=== PATIENT | female | born 1940 | race Caucasian/White ===

== ENCOUNTER 2022-12-09 09:45 | Outpatient (OUT) | payer MEDICARE, SELFPAY ==
[2022-12-09 10:17] LABS: Basophils Absolute Auto 0.1 10^3/uL (0.0-0.1); Basophils Percent Auto 1.1 % (0.2-2.0); Eosinophils Absolute Auto 0.3 10^3/uL (0.0-0.7); Eosinophils Percent Auto 4.6 % (0.9-7.0); Hematocrit 39.1 % (36.0-48.0); Hemoglobin 13.4 g/dL (12.0-16.0); Immature Granulocytes Abs Auto 0.05 10^3/uL (0.00-0.03); Immature Granulocytes Pct Auto 0.8 % (0.0-0.5); Lymphocytes Absolute Auto 1.6 10^3/uL (1.2-3.8); Lymphocytes Percent Auto 26.9 % (20.5-60.0); Mean Corpuscular HGB Conc 34.3 g/dL (29.9-35.2); Mean Corpuscular Hemoglobin 29.6 pg (26.7-34.0); Mean Corpuscular Volume 86.5 fL (81.0-99.0); Mean Platelet Volume 9.2 fL (9.5-13.5); Monocytes Absolute Auto 0.7 10^3/uL (0.3-0.8); Neutrophils Absolute Auto 3.4 10^3/uL (1.4-6.5); Neutrophils Percent Auto 55.6 % (43.0-75.0); Platelet Count 256 10^3/uL (150-450); Red Blood Count 4.52 10^6/uL (4.20-5.40); Red Cell Distribution Width 14.4 % (11.0-15.0); White Blood Count 6.1 10^3/uL (4.0-11.0)
[2022-12-09 11:38] LABS: Anion Gap 12.8; BUN Creatinine Ratio 21.4; Calcium 9.2 mg/dL (8.5-10.1); Carbon Dioxide 27.9 mmol/L (21.0-32.0); Chloride 104 mmol/L (98-107); Estimated GFR (African America >60 (>=60); Estimated GFR (Non-African Ame >60 (>=60); Glucose 98 mg/dL (74-106); Potassium 3.7 mmol/L (3.5-5.1); Sodium 141 mmol/L (136-145)
== END 2022-12-09 09:46 | disposition home or self-care (01) ==
LOC: LAB 09:54
PROVIDERS: PCP Family Medicine; Visit Provider Nurse Practitioner
DX: I10 Essential (primary) hypertension (principal)
CPT/HCPCS: 36415; 80048; 85025

== ENCOUNTER 2022-12-30 08:25 | Outpatient (OUT) | payer MEDICARE, OTHER, SELFPAY ==
[2022-12-30 09:29] LABS: Chol HDL Ratio 4.2; Cholesterol 171 mg/dL (<=200); HDL Cholesterol 41 mg/dL (40-60); Triglycerides 163 mg/dL (<=150); VLDL CHOLESTEROL 32.6 mg/dL
== END 2022-12-30 08:26 | disposition home or self-care (01) ==
LOC: LAB 08:27
PROVIDERS: PCP Family Medicine; Visit Provider Internal Medicine Cardiovascular Disease
DX: E78.5 Hyperlipidemia, unspecified (principal)
CPT/HCPCS: 36415; 80061

== ENCOUNTER 2023-05-26 09:15 | Outpatient (OUT) | payer MEDICARE, OTHER, SELFPAY ==
[2023-05-26 10:52] LABS: Bilirubin Direct 0.2 mg/dL (0.0-0.2)
== END 2023-05-26 09:16 | disposition home or self-care (01) ==
PROVIDERS: PCP Family Medicine; Visit Provider Nurse Practitioner Acute Care
DX: E78.5 Hyperlipidemia, unspecified (principal)
CPT/HCPCS: 36415; 82248

== ENCOUNTER 2023-05-26 09:20 | Outpatient (OUT) | payer MEDICARE, OTHER, SELFPAY ==
[2023-05-26 09:43] LABS: Basophils Absolute Auto 0.1 10^3/uL (0.0-0.1); Basophils Percent Auto 1.1 % (0.2-2.0); Eosinophils Absolute Auto 0.3 10^3/uL (0.0-0.7); Eosinophils Percent Auto 4.1 % (0.9-7.0); Hematocrit 38.5 % (36.0-48.0); Hemoglobin 12.8 g/dL (12.0-16.0); Immature Granulocytes Abs Auto 0.02 10^3/uL (0.00-0.03); Immature Granulocytes Pct Auto 0.3 % (0.0-0.5); Lymphocytes Absolute Auto 1.7 10^3/uL (1.2-3.8); Lymphocytes Percent Auto 23.6 % (20.5-60.0); Mean Corpuscular HGB Conc 33.2 g/dL (29.9-35.2); Mean Corpuscular Hemoglobin 29.5 pg (26.7-34.0); Mean Corpuscular Volume 88.7 fL (81.0-99.0); Mean Platelet Volume 9.2 fL (9.5-13.5); Monocytes Absolute Auto 0.7 10^3/uL (0.3-0.8); Monocytes Percent Auto 10.6 % (1.7-12.0); Neutrophils Absolute Auto 4.2 10^3/uL (1.4-6.5); Neutrophils Percent Auto 60.3 % (43.0-75.0); Platelet Count 236 10^3/uL (150-450); Red Blood Count 4.34 10^6/uL (4.20-5.40); Red Cell Distribution Width 14.2 % (11.0-15.0)
[2023-05-26 10:49] LABS: Alanine Aminotransferase 23 U/L (14-59); Albumin Globulin Ratio 1.1; Albumin Level 3.4 g/dL (3.4-5.0); Alkaline Phosphatase 66 U/L (46-116); Anion Gap 10.3; Aspartate Amino Transferase 15 U/L (15-37); BUN Creatinine Ratio 19.5; Bilirubin Total 0.7 mg/dL (0.2-1.0); Calcium 8.9 mg/dL (8.5-10.1); Carbon Dioxide 30.1 mmol/L (21.0-32.0); Chloride 105 mmol/L (98-107); Cholesterol 131 mg/dL (<=200); Estimated GFR (African America >60 (>=60); Estimated GFR (Non-African Ame >60 (>=60); Globulin 3.1 g/dL; Glucose 95 mg/dL (74-106); HDL Cholesterol 44 mg/dL (40-60); LDL Cholesterol Calculated 64.2 mg/dL; Potassium 3.4 mmol/L (3.5-5.1); Sodium 142 mmol/L (136-145); Total Protein 6.5 g/dL (6.4-8.2); Triglycerides 114 mg/dL (<=150); VLDL CHOLESTEROL 22.8 mg/dL
== END 2023-05-26 09:21 | disposition home or self-care (01) ==
PROVIDERS: PCP Family Medicine; Visit Provider Family Medicine
DX: E78.5 Hyperlipidemia, unspecified (principal)
CPT/HCPCS: 36415; 80053; 80061; 82248; 85025

== ENCOUNTER 2024-01-26 12:47 | Outpatient (OUT) | payer MEDICARE, OTHER, SELFPAY ==
--- NOTE | 2024-01-26 12:47 | CA_ITS ---
Patient Name: KRYSTEN SUAREZ MR#: [id number] : 1940 Exam Date: 01/26/2024 Ordering Doctor: ALIZA BALDWIN M.D. ECHOCARDIOGRAM REPORT PROCEDURE: CA ECHO DOPPLER COMPLETE INDICATIONS: Edema COMPARISON: None. DESCRIPTION: COMPLETE ECHOCARDIOGRAM Real-time transthoracic echocardiography with 2D, M-mode, spectral and color flow Doppler performed. QUALITY: Technical quality was good. LEFT VENTRICLE: Normal chamber size. Thickened septal wall. Global left ventricular systolic function is normal. LV EF: Estimated left ventricular ejection fraction is 60-65 %. DIASTOLIC: Grade 2 diastolic dysfunction. ATRIAL SEPTUM: LEFT ATRIUM: Moderate dilatation. RIGHT ATRIUM: Mild dilatation. RIGHT VENTRICLE: Normal chamber size. Normal right ventricular systolic function. TRICUSPID VALVE: Normal mobility and thickness. No stenosis with mild regurgitation. Moderate pulmonary hypertension. RVSP 52 mmHg MITRAL VALVE: Normal mobility and thickness. No evidence of mitral valve stenosis. There is no mitral annular calcification. Mild mitral regurgitation. AORTIC VALVE: Normal trileaflet appearance. No visible sclerosis. Normal leaflet mobility. No evidence of aortic valve stenosis. No aortic regurgitation. AORTIC ROOT: Normal diameter and appearance. PULMONIC VALVE: Normal thickness and mobility. No stenosis. Trivial regurgitation. PERICARDIUM: No evidence of pericardial effusion. IVC: Collapses with inspirations. Normal size. PLEURA: CONCLUSION: 1. Normal left ventricular size and systolic function. Estimated LVEF is 60 to 65%. 2. Normal right ventricular size and systolic function. 3. Grade 2 diastolic dysfunction. 4. Mild mitral and tricuspid regurgitation. 5. Moderately elevated right-sided pressures. RVSP is 52 mmHg. Adult Echocardiography Procedure Report Left Ventricle LVEDD (3.7 - 5.6 cm): 4.01 cm LVESD (2.2 - 4.0 cm): 2.71 cm LVIVS thickness (0.6 - 1.2 cm): 1.35 cm LVPW thickness (0.5 - 1.0 cm): 1.08 cm e': 0.07 m/s E - e': 14.96 LVOT Max Gradient: 3.60 mm[Hg], 3.34 mm[Hg] LVOT Area (cm2): 0.93 m/s Peak Velocity (LVOT): 0.95 m/s, 0.91 m/s Mean Velocity (LVOT): 0.68 m/s LVOT Diameter 1.94 cm Left Ventricular Ejection Fraction: 60-65 % Left Atrium LA Volume Index (2D A2C): 45.59 ml/m2 Left Atrium Systolic Dimension: 3.42 cm Mitral Valve MV E to A Ratio: 1.29, 1.06 Mitral Valve A-Wave Peak Velocity: 0.85 m/s Mitral Valve E-Wave Peak Velocity: 0.99 m/s Right Ventricle RV Internal Diastolic Dimension: 3.12 cm Aorta AO Root Diam: 3.32 cm Ascending Ao Diam: 2.95 cm Aortic Valve AoV Area (Peak Paul): 2.04 cm2, 2.10 cm2, 1.97 cm2 AoV Area (VTI): 2.04 cm2, 2.23 cm2, 1.86 cm2 Peak Velocity(Antegrade Flow): 1.33 m/s, 1.37 m/s Peak Gradient(Antegrade Flow): 7.08 mm[Hg], 7.50 mm[Hg] Mean Velocity(Antegrade Flow): 0.88 m/s, 0.96 m/s Mean Gradient(Antegrade Flow): 3.55 mm[Hg], 4.30 mm[Hg] Velocity Time Integral: 36.05 cm, 38.55 cm Tricuspid Valve Peak Velocity (Regurgitant Flow): 2.32 m/s, 2.01 m/s, 3.51 m/s Pulmonic Valve Peak Velocity: 0.85 m/s Peak Gradient: 2.91 mm[Hg], 2.82 mm[Hg] Right Atrium Right Atrium Systolic Pressure: 46.65 ml, 46.65 ml Dictated by: Kvng Robin M.D. on 01/27/2024 at 20:19 Approved by: Kvng Robin M.D. on 01/27/2024 at 20:22
== END 2024-01-26 12:48 | disposition home or self-care (01) ==
LOC: CARD 12:48
PROVIDERS: PCP Family Medicine; Visit Provider Internal Medicine Cardiovascular Disease
DX: R60.0 Localized edema (principal)
CPT/HCPCS: 93306

== ENCOUNTER 2024-06-04 08:50 | Outpatient (OUT) | payer MEDICARE, OTHER, SELFPAY ==
--- OUTSIDE RECORDS SUMMARY | 2024-06-04 08:53 | XMS_ITS | CCD ---
Author Organization [facility] Care Team Providers Care Risk Adjustment Specialist Name Role Phone DR DALIA COLEMAN Admitting Unavailable COLEMAN, DR DALIA Park Attending Unavailable COLEMAN, DR DALIA Park Consulting Unavailable COLEMAN, DR DALIA Park Primary Care Unavailable COLEMAN, DR DALIA Park Primary Care Unavailable ROSE MARY, ANTOINETTE Attending Unavailable ROSE MARY, ANTOINETTE Admitting Unavailable COLEMAN, DR DALIA Park Primary Care Unavailable ROSE MARY, ANTOINETTE Admitting Unavailable ROSE MARY, ANTOINETTE Attending Unavailable VIRGINIA, DR DALIA Park Primary Care Unavailable ALGHOALEJANDRO, MOHAMAOskar Admitting Unavailable ALGHOALEJANDRO, MOHAMAD Attending Unavailable ALGHOTHARTEM, MOHAMAD Consulting Unavailable VIRGINIA, DR DALIA Park Primary Care Unavailable ALGHOTHANI, MOHAMAD Admitting Unavailable ALGHOTHANI, MOHAMAD Attending Unavailable MIKYHOALEJANDRO, MOHAMAD Consulting Unavailable Dalia Coleman Unavailable ALGHOCISCOANI, MOHAMAD Attending Unavailable ROSE MARY, ANTOINETTE Attending Unavailable CATRINA NOVA Attending Unavailable CATRINA NOVA Attending Unavailable CATRINA NOVA Attending Unavailable Dalia Coleman MD Primary Care Provider [phone] Medications Current Medications Medication Drug Class(es) Dates Sig (Normalized) Sig (Original) atorvastatin 40 mg oral tablet (1 source) HMG-CoA Reductase Inhibitor take 1 tablet by mouth every twenty-four hours Atorvastatin Calcium 40 MG 1 tablet once a day Active Handicap Placard (1 source) Start: 2 Handicap Placard HandiCap Placard , as directed # 1, 05/02/2022, No Refill. Active Does not apply as directed for 0 duration 5 years *Reorder from [facility] for eRx and Interaction Alerts* Apr, Active hydroCHLOROthiazide 25 mg oral tablet (1 source) Thiazide Diuretic hydroCHLOROthiazide 25 MG TAKE 1 TABLET EVERY DAY Active losartan potassium 50 mg oral tablet (1 source) Angiotensin 2 Receptor Le Start: 2 take 50 mg by mouth once daily losartan 50mg losartan( 50mg oral daily ) Active -Hx Entry oral daily *Reorder from [facility] for eRx and Interaction Alerts* Apr, Active Problems Problem Classification Problem Date Documented Date Episodic/Chronic Cardiac dysrhythmias (1 source) Bradycardia; Translations: [Bradycardia, unspecified] Episodic Disorders of lipid metabolism (3 sources) Hyperlipidemia, unspecified; Translations: [Elevated fasting lipid profile] Onset: 07-11-2022 Chronic Essential hypertension (6 sources) Essential (primary) hypertension; Translations: [Essential hypertension] Onset: 05-15-2022 Chronic Hypertension with complications and secondary hypertension (4 sources) Hypertensive heart disease with heart failure; Translations: [HTN HEART DISEASE W/HEART FAIL] Onset: 07-09-2022 Chronic Osteoarthritis (1 source) Osteoarthritis; Translations: [Unspecified osteoarthritis, unspecified site] Chronic Other diseases of bladder and urethra (1 source) Bladder muscle dysfunction - overactive; Translations: [Overactive bladder] Chronic Other ear and sense organ disorders (3 sources) Asymmetrical sensorineural hearing loss; Translations: [Sensorineural hearing loss, bilateral] 05-21-2024 Chronic Spondylosis; intervertebral disc disorders; other back problems (2 sources) Sciatica; Translations: [Sciatica, right side] Episodic Results Test Name Value Interpretation Reference Range Facil ity Office Visiton 12-25-2023 Follow-up visit [id number] Katie Barrera 1940 Date Provider Department Center 12/25/2023 3848-KARI GANT PENG Lamb Family History Problem Relation Age of Onset Stroke Father Family Status - Relation Status Age at Father Level of Service:82226 [place] OFFICE/OUTPATIENT ESTABLISHED MOD MDM 30 MIN Normal [facility] Office Visiton 07-11-2023 Follow-up visit [id number] Katie Barrera 1940 Date Provider Department Center 07/11/2023 120-ANTOINETTE BAZZI Family History Problem Relation Age of Onset Stroke Father Family Status - Relation Status Age at Father Level of Service:80682 [place] OFFICE/OUTPATIENT ESTABLISHED MOD MDM 30 MIN Normal [facility] PROF CHEM 8 (BAS METB)on Anion gap [Moles/Vol] 13.5 mmol/L Normal [facility] Comment on above: Performed By: #### B MP #### [facility] [address] [address] [address] Bessy Goetz Calcium [Mass/Vol] 9.1 mg/dL Normal 8.5-10.[address] [facility] Comment on above: Performed By: #### B MP #### [facility] [address] [address] [address] Bessy Goetz Chloride [Moles/Vol] 103 mmol/L Normal 98-107 [facility] Comment on above: Performed By: #### B MP #### [facility] [address] [place] [address] Dr. Bessy Goetz CO2 [Moles/Vol] 28.9 mmol/L Normal 21.0-32.0 [facility] Comment on above: Performed By: #### B MP #### [facility] [address] [address] [address] Bessy Goetz Creatinine [Mass/Vol] 0.83 mg/dL Normal 0.55-1.02 [facility] Comment on above: Performed By: #### B MP #### [facility] [address] [address] [address] Bessy Goetz EGFR-AF IRISH >60 Normal >=60 [facility] Comment on above: Performed By: #### B MP #### [facility] [address] [address] [address] Bessy Goetz EGFR-NON AF IRISH >60 Normal >=60 [facility] Comment on above: Performed By: #### B MP #### [facility] [address] [address] [address] Bessy Goetz Glucose [Mass/Vol] 88 mg/dL Normal 74-106 [facility] Comment on above: Performed By: #### B MP #### [facility] [address] [place] [address] Dr. Bessy Goetz Potassium [Moles/Vol] 3.4 mmol/L Critically low 3.5-5.1 [facility] Comment on above: Performed By: #### B MP #### [facility] [address] [place] [address] Dr. Bessy Goetz Sodium [Moles/Vol] 142 mmol/L Normal 136-[address] [facility] Comment on above: Performed By: #### B MP #### [facility] [address] [place] [address] Dr. Bessy Goetz Urea nitrogen [Mass/Vol] 17.0 mg/dL Normal 7.0-18.0 [facility] Comment on above: Performed By: #### B MP #### [facility] [address] [place] [address] Dr. Bessy Goezt Urea nitrogen/Creatinin e [Mass ratio] 20.5 mg/mg Normal [facility] Comment on above: Performed By: #### B MP #### [facility] [address] [place] [address] Dr. Bessy Goetz CBC AUTO DIFFon 05-15-2022 BASO # 0.1 103/ul Normal 0.0-0.1 [facility] Comment on above: Performed By: #### C BC #### [facility] [address] [place] [address] Dr. Bessy Goetz Basophils/100 WBC (Bld) 1.2 % Normal 0.2-2.0 [facility] Comment on above: Performed By: #### C BC #### [facility] [address] [place] [address] Dr. Bessy Goetz EO # 0.3 103/ul Normal 0.0-0.7 [facility] Comment on above: Performed By: #### C BC #### [facility] [address] [place] [address] Dr. Bessy Goetz Eosinophils/100 WBC (Bld) 4.1 % Normal 0.9-7.0 [facility] Comment on above: Performed By: #### C BC #### [facility] [address] [place] [address] Dr. Bessy Goetz Erythrocyte distribution width (RBC) [Ratio] 14.0 % Normal 11.0-15.0 [facility] Comment on above: Performed By: #### C BC #### [facility] [address] [place] [address] Dr. Bessy Goetz Hematocrit (Bld) [Volume fraction] 40.2 % Normal 36.0-48.0 [facility] Comment on above: Performed By: #### C BC #### [facility] [address] [place] [address] Dr. Bessy Goetz Hemoglobin (Bld) [Mass/Vol] 13.7 g/dL Normal 12.0-16.0 [facility] Comment on above: Performed By: #### C BC #### [facility] [address] [place] [address] Dr. Bessy Goetz IG # 0.04 10e3/ul Critically high 0.00-0.03 [facility] Comment on above: Performed By: #### C BC #### [facility] [address] [place] [address] Dr. Bessy Goetz IG % 0.6 % Critically high 0.0-0.5 [facility] Comment on above: Performed By: #### C BC #### [facility] [address] [place] [address] Dr. Bessy Goetz LYMPH # 1.9 103/ul Normal 1.2-3.8 [facility] Comment on above: Performed By: #### C BC #### [facility] [address] [place] [address] Dr. Bessy Goetz Lymphocytes/100 WBC (Bld) 26.7 % Normal 20.5-60.0 [facility] Comment on above: Performed By: #### C BC #### [facility] [address] [place] [address] Dr. Bessy Goetz MANUAL DIFF REQ NO Normal [facility] Comment on above: Performed By: #### C BC #### [facility] [address] [place] [address] Dr. Bessy Goetz MCH (RBC) [Entitic mass] 29.2 pg Normal 26.7-34.0 [facility] Comment on above: Performed By: #### C BC #### [facility] [address] [place] [address] Dr. Bessy Goetz MCHC (RBC) [Mass/Vol] 34.1 g/dL Normal 29.9-35.2 [facility] Comment on above: Performed By: #### C BC #### [facility] [address] [place] [address] Dr. Bessy Goetz MCV (RBC) [Entitic vol] 85.7 fL Normal 81.0-99.0 [facility] Comment on above: Performed By: #### C BC #### [facility] [address] [place] [address] Dr. Bessy Goetz MONO # 0.7 103/ul Normal 0.3-0.8 [facility] Comment on above: Performed By: #### C BC #### [facility] [address] [place] [address] Dr. Bessy Goetz Monocytes/100 WBC (Bld) 9.9 % Normal 1.7-12.0 [facility] Comment on above: Performed By: #### C BC #### [facility] [address] [place] [address] Dr. Bessy Goetz NEUT # 4.2 103/ul Normal 1.4-6.5 [facility] Comment on above: Performed By: #### C BC #### [facility] [address] [place] [address] Dr. Bessy Goetz Neutrophils/100 WBC (Bld) 57.5 % Normal 43.0-75.0 [facility] Comment on above: Performed By: #### C BC #### [facility] [address] [place] [address] Dr. Bessy Goetz Platelet mean volume (Bld) [Entitic vol] 9.0 fL Critically low 9.5-13.5 [facility] Comment on above: Performed By: #### C BC #### [facility] [address] [place] [address] Dr. Bessy Goetz PLT 263 103/ul Normal 150-450 [facility] Comment on above: Performed By: #### C BC #### [facility] [address] [place] [address] Dr. Bessy Gotez RBC 4.69 106/ul Normal 4.20-5.40 [facility] Comment on above: Performed By: #### C BC #### [facility] [address] [place] [address] Dr. Bessy Goetz WBC 7.3 103/ul Normal 4.0-11.0 [facility] Comment on above: Performed By: #### C BC #### [facility] [address] [place] [address] Dr. Bessy Goetz LIPID PROFILEon 05-15-2022 CHOL-HDL RATIO NORM SEE BELOW Normal [facility] Comment on above: Result Comment: 3.3 - 4.4 LOW RISK 4.4 - 7.1 AVERAGE RISK 7.1 - 11.0 MODERATE RISK >11.0 HIGH RISK Performed By: #### C MP, LIPID #### [facility] [address] [place] [address] Dr. Bessy Goetz Cholesterol [Mass/Vol] 168 mg/dL Normal <=200 [facility] Comment on above: Performed By: #### C MP, LIPID #### [facility] [address] [place] [address] Dr. Bessy Goetz Cholesterol in HDL [Mass/Vol] 42 mg/dL Normal 40-60 [facility] Comment on above: Performed By: #### C MP, LIPID #### [facility] [address] [place] [address] Dr. Bessy Goetz Cholesterol in LDL [Mass/Vol] 94.2 mg/dL Normal [facility] Comment on above: Performed By: #### C MP, LIPID #### [facility] [address] [place] [address] Dr. Bessy Goetz Cholesterol.total/ Cholesterol in HDL [Mass ratio] 4.0 {ratio} Normal [facility] Comment on above: Performed By: #### C MP, LIPID #### [facility] [address] [address] [address] Bessy Goetz HDL NORMAL > or = 60 mg/dl - LOW CARDIOVASCULAR RISK <40 mg/dl - HIGH CARDIOVASCULAR RISK Normal [facility] Comment on above: Performed By: #### C MP, LIPID #### [facility] [address] [address] [address] Bessy Goetz LDL CALC NORMAL SEE BELOW Normal [facility] Comment on above: Result Comment: <100 mg/dl OPTIMAL 100 - 129 mg/dl NEAR OR ABOVE OPTIMAL 130 - 159 mg/dl BORDERLINE HIGH 160 - 189 mg/dl HIGH >190 mg/dl VERY HIGH Performed By: #### C MP, LIPID #### [facility] [address] [place] [address] Dr. Bessy Goetz Triglyceride [Mass/Vol] 159 mg/dL Critically high <=150 [facility] Comment on above: Performed By: #### C MP, LIPID #### [facility] [address] [place] [address] Dr. Bessy Goetz VLDL CALC 31.8 mg/dL Normal [facility] Comment on above: Performed By: #### C MP, LIPID #### [facility] [address] [place] [address] Dr. Bessy Goetz PROF 14(COMP METB)on 022 Albumin [Mass/Vol] 3.5 g/dL Normal 3.4-5.[address] [facility] Comment on above: Performed By: #### C MP, LIPID #### [facility] [address] [place] [address] Dr. Bessy Goetz Albumin/Globulin [Mass ratio] 1.1 {ratio} Normal [facility] Comment on above: Performed By: #### C MP, LIPID #### [facility] [address] [place] [address] Dr. Bessy Goetz ALP [Catalytic activity/Vol] 67 U/L Normal 46-116 [facility] Comment on above: Performed By: #### C MP, LIPID #### [facility] [address] [place] [address] Dr. Bessy Goetz ALT [Catalytic activity/Vol] 18 U/L Normal 14-59 [facility] Comment on above: Performed By: #### C MP, LIPID #### [facility] [address] [address] [address] Bessy Goetz Anion gap [Moles/Vol] 12.1 mmol/L Normal [facility] Comment on above: Performed By: #### C MP, LIPID #### [facility] [address] [address] [address] Bessy Goetz AST [Catalytic activity/Vol] 14 U/L Critically low 15-37 [facility] Comment on above: Performed By: #### C MP, LIPID #### [facility] [address] [address] [address] Bessy Goetz Bilirubin [Mass/Vol] 0.5 mg/dL Normal 0.2-1.0 [facility] Comment on above: Performed By: #### C MP, LIPID #### [facility] [address] [place] [address] Dr. Bessy Goetz Calcium [Mass/Vol] 9.0 mg/dL Normal 8.5-10.[address] [facility] Comment on above: Performed By: #### C MP, LIPID #### [facility] [address] [place] [address] Dr. Bessy Goetz Chloride [Moles/Vol] 103 mmol/L Normal 98-107 [facility] Comment on above: Performed By: #### C MP, LIPID #### [facility] [address] [place] [address] Dr. Bessy Goetz CO2 [Moles/Vol] 29.3 mmol/L Normal 21.0-32.0 [facility] Comment on above: Performed By: #### C MP, LIPID #### [facility] [address] [place] [address] Dr. Bessy Goetz Creatinine [Mass/Vol] 0.81 mg/dL Normal 0.55-1.02 [facility] Comment on above: Performed By: #### C MP, LIPID #### [facility] [address] [place] [address] Dr. Bessy Goetz EGFR-AF IRISH >60 Normal >=60 [facility] Comment on above: Performed By: #### C MP, LIPID #### [facility] [address] [address] [address] Bessy Goetz EGFR-NON AF IRISH >60 Normal >=60 [facility] Comment on above: Performed By: #### C MP, LIPID #### [facility] [address] [address] [address] Bessy Goetz Globulin (S) [Mass/Vol] 3.3 g/dL Normal [facility] Comment on above: Performed By: #### C MP, LIPID #### [facility] [address] [address] [address] Bessy Goetz Glucose [Mass/Vol] 93 mg/dL Normal 74-[address] [facility] Comment on above: Performed By: #### C MP, LIPID #### [facility] [address] [address] [address] Bessy Goetz Potassium [Moles/Vol] 3.4 mmol/L Critically low 3.5-5.1 [facility] Comment on above: Performed By: #### C MP, LIPID #### [facility] [address] [address] [address] Bessy Goetz Protein [Mass/Vol] 6.8 g/dL Normal 6.4-8.2 [facility] Comment on above: Performed By: #### C MP, LIPID #### [facility] [address] [address] [address] Bessy Goetz Sodium [Moles/Vol] 141 mmol/L Normal 136-145 [facility] Comment on above: Performed By: #### C MP, LIPID #### [facility] [address] [address] [address] Bessy Goetz Urea nitrogen [Mass/Vol] 16.0 mg/dL Normal 7.0-18.0 [facility] Comment on above: Performed By: #### C MP, LIPID #### [facility] [address] [address] [address] Bessy Goetz Urea nitrogen/Creatinin e [Mass ratio] 19.8 mg/mg Normal [facility] Comment on above: Performed By: #### C MP, LIPID #### [facility] [address] [address] [address] Bessy Goetz PROF CHEM 8 (BAS METB)on Anion gap [Moles/Vol] 10.3 mmol/L Normal [facility] Comment on above: Performed By: #### B MP #### [facility] [address] [address] [address] Bessy Goetz Calcium [Mass/Vol] 9.4 mg/dL Normal 8.5-10.[address] [facility] Comment on above: Performed By: #### B MP #### [facility] [address] [place] [address] Dr. Bessy Goetz Chloride [Moles/Vol] 103 mmol/L Normal 98-107 [facility] Comment on above: Performed By: #### B MP #### [facility] [address] [address] [address] Bessy Goetz CO2 [Moles/Vol] 31.4 mmol/L Critically high 22.0-30.0 [facility] Comment on above: Performed By: #### B MP #### [facility] [address] [place] [address] Dr. Bessy Goetz Creatinine [Mass/Vol] 0.80 mg/dL Normal 0.52-1.04 [facility] Comment on above: Performed By: #### B MP #### [facility] [address] [address] [address] Bessy Goetz EGFR-AF IRISH >60 Normal >=60 [facility] Comment on above: Performed By: #### B MP #### [facility] [address] [address] [address] Bessy Goetz EGFR-NON AF IRISH >60 Normal >=60 [facility] Comment on above: Performed By: #### B MP #### [facility] [address] [place] [address] Dr. Bessy Goetz Glucose [Mass/Vol] 100 mg/dL Normal 74-106 [facility] Comment on above: Performed By: #### B MP #### [facility] [address] [address] [address] Bessy Goetz Potassium [Moles/Vol] 3.7 mmol/L Normal 3.4-5.0 [facility] Comment on above: Performed By: #### B MP #### [facility] [address] [address] [address] Bessy Goetz Sodium [Moles/Vol] 141 mmol/L Normal 137-[address] [facility] Comment on above: Performed By: #### B MP #### [facility] [address] [address] [address] Bessy Goetz Urea nitrogen [Mass/Vol] 12.0 mg/dL Normal 7.0-18.0 [facility] Comment on above: Performed By: #### B MP #### [facility] [address] [address] [address] Bessy Goetz Urea nitrogen/Creatinin e [Mass ratio] 15.0 mg/mg Normal [facility] Comment on above: Performed By: #### B MP #### [facility] [address] [address] [address] Bessy Goetz Consent for COVID Vaccineon 09-26-2020 SARS-CoV-2 (COVID-19) RNA TRISTAN+probe Ql (Unsp spec) [id number] 5#1.00CD:127 Normal [facility] Consent for COVID Vaccineon 09-02-2020 SARS-CoV-2 (COVID-19) RNA TRISTAN+probe Ql (Unsp spec) [id number] 5#1.00CD:127 Normal [facility] Consent for Treatmenton 08-15 Consent for Treatment [id number] 0#1.00CD:127 Normal [facility] Coding Summary.on 08-30-2020 Coding Summary. CODING DATE: 08/30/2020 FINAL [facility] STATUS: PAYOR: Medicare APC DESCRIPTION [employer] - Level 1B ($11-$20) ADMIT DX: REASON FOR VISIT DX: Z23 Encounter for immunization FINAL DX: PRINCIPAL: Z23 Encounter for immunization SECONDARY: PYMT PROC APC STAT DESCRIPTION DOCTOR NAME DATE NOTE: The code number assigned matches the documented diagnosis and / or procedure in the patient's chart. However, the narrative phrase printed from the coding software may appear abbreviated, or result in slightly different terminology. Coded By: Lachelle Bustos Date Saved: 08/30/2020 01:41 pm Normal [facility] Vital Signs Date Time Vital Sign Value Performing Clinician Facility 05-05-2023 09:30-0500 Body height 153.67 cm Dalia Coleman Other [facility] Other 05-05-2023 09:30-0500 Body mass index (BMI) [Ratio] 36.68 kg/m2 Dalia Coleman Other [facility] Other 05-05-2023 09:30-0500 Body weight 86.64 kg Dalia Coleman Other [facility] Other 05-05-2023 09:30-0500 Diastolic blood pressure 67 mm[Hg] Dalia Coleman Other [facility] Other 05-05-2023 09:30-0500 Systolic blood pressure 114 mm[Hg] Dalia Coleman Other [facility] Other Encounters Encounter Date Encounter Type Care Provider Facility Start: 05-19-2024 End: 05-19-2024 Patient encounter procedure [facility] Venessa Helms [facility] Comment on above: Asymmetrical sensori neural hearing loss (Primary Dx) Start: 02-18-2024 End: 02-18-2024 Bamboo flowsheet Catrina Nova [facility] Work Phone: [facility] Start: 02-18-2024 End: 02-18-2024 Bamboo flowsheet Catrina Nova [facility] Work Phone: [facility] Start: 02-18-2024 End: 02-18-2024 Clinical Support Catrnia Nova [facility] Work Phone: [facility] Comment on above: Asymmetrical sensori neural hearing loss (Primary Dx) Start: 02-18-2024 End: 02-18-2024 ambulatory CATRINA NOVA Not Available Start: 02-02-2024 End: 02-02-2024 ambulatory CATRINA NOVA Not Available Start: 01-14-2024 End: 01-14-2024 ambulatory CATRINA NOVA Not Available Start: 12-25-2023 End: 12-25-2023 [facility] Start: 07-11-2023 End: 07-11-2023 ambulatory ANTOINETTE ROSE MARY [facility] Start: 05-05-2023 End: 05-05-2023 ambulatory Dalia Coleman Other [facility] Other Start: 05-05-2023 Patient encounter procedure Dalia Coleman [facility] Start: 07-09-2022 End: 07-10-[address] DALIA COLEMAN Facility:[facility] Start: 05-15-2022 End: 05-16-[address] DALIA COLEMAN Facility:[facility] Start: 11-29-[address] DALIA COLEMAN Facil ity:[facility] Start: 09-05-2021 End: 09-06-[address] DALIA COLEMAN Facility:[facility] Plan of Treatment Date Care Activity Detail Author Start: 01-05-2025 End: 01-05-2025 Clinical Support 01/05/2025 10:00 AM EDT Clinical Support [facility] [address] [place] [address] Catrina Nova, CCC[facility] [address] [place] [address] [facility] Start: 05-19-2024 End: 05-19-2024 Patient encounter procedure 05/19/2024 10:00 AM EST Office Visit [facility] [address] [place] [id number] [facility] Start: 02-18-2024 End: 02-18-2024 Clinical Support 02/18/2024 8:30 AM EDT Clinical Support [facility] [address] [place] [id number] Catrina Nova, CCC-A [address] [facility] [place] [address] Arrived [facility] Comment on above: Arrived Start: 02-15-2024 Influenza vaccination Influenza Vacc ine (#1) [facility] Immunizations Immunization Date Immunization Notes Care Provider Fa cility 05-02-2022 influenza virus vaccine, split virus (incl. purified surface antigen) Dalia Coleman Other [facility] Other 05-02-2022 influenza virus vaccine, unspecified formulation Catrina Nova [facility] Work Phone: [facility] 05-05-2017 pneumococcal polysaccharide vaccine, 23 valent Dalia Coleman Other [employer] Other 04-02-2016 pneumococcal conjuga te vaccine, 13 valent Dalia Coleman Other [employer] Other 04-25-2015 zoster vaccine, live Dalia Coelman Other [employer] Other Payers Date Payer Category Payer Medicare HU[employer]NA MEDICARE ADVANTAGE HU[employer]NA MEDICARE [id number] 2022-Present [address] [address] [place] [address] [id number] 2022 Medicare (Managed Care) HU[employer]NA EDICARE ADVANTAGE [id number] 2021 Private Health Insurance [employer] [id number] 2021 Unknown [employer] M [employer] [id number] 2021- [address] [place] [address] [id number] 1959 Medicare [id number] 1959 Self-pay [id number] 1959 Unknown [id number] 1941 Unknown [id number]. 593 1941 Unknown [id number] 2.840.1.051980.3.579.2. 593 1941 Unknown [id number] [id number]. 593 1941 Unknown [id number] 2.840.1.101614.3.579.2. 593 1941 Unknown [id number]. 593 1941 Unknown [id number]. 1259 1941 Unknown [id number]. 1259 1941 Unknown [id number]. 1259 Social History Date Type Detail Facility Unknown if ever smoked [facility] [employer] Other Sex Assigned At [employer] (T/A) [facility] [employer] Other Tobacco smoking status NHIS Tobacco smoking consumption unknown [facility] Start: 1940 Sex assigned at Not on file [facility] Clinical Notes 05-05-2023 to 05-19-2024 Venessa Helms MA - 05/19/2024 10:00 AM RAJAT Cruz - 02/18/2024 8:30 AM EDT Note Date & Type Note Facility 05-19-2024 History of Present illness Narrative Patient aids were cleaned and checked. Patient had changed the dome and filter and just wanted to make sure she had done it right. Patient is pleased. She was scheduled to be seen toward the end of her service contract. Cosigned by RAJAT Jiang at 05/21/2024 3:13 PM EST documented in this encounter [facility] 02-18-2024 History of Present illness Narrative Hearing Aid Check: 2 week PAZ check - pt doing very well and likes CROS. She feels more balanced. Reviewed changing dome and filter. Will see pt in 3 months. Will review changing dome/filter again if needed documented in this encounter [facility] 12-25-2023 Note Cardiology Follow Up Progress Note Chief Complaint: [place] Follow up HPI: Ms. Barrera is an 81-year-old patient with a past medical history including hypertension, hyperlipidemia, and bradycardia. She presents to cardiology clinic for routine follow-up. Patient here for 6 mo follow up hypertension, hyperlipidemia, and bradycardia. No recent labs/imaging. She is doing very well. Denies chest pain, SOB, palpitations, and lightheadedness/syncope. LE edema is stable and no more than usual for her. She adamantly denies any cardiac complaints or concerns. at the present time. She denies any chest pain or shortness of breath. No dizziness or lightheadedness. She denies any worsening lower extremity edema. No orthopnea or paroxysmal nocturnal dyspnea. Overall, she is very pleased with how she is doing. Cardiology ROS: GENERAL: Denies fever, chills, night sweats, weight loss. HEENT: Denies changes in vision, photophobia, changes in hearing, epistaxis, oral bleeding. CARDIOVASCULAR: Denies chest pain, exertional dyspnea, orthopnea/PND, lower extremity edema, palpitations, lightheadedness/dizziness. RESPIRATORY: Denies SOB, coughing, wheezing GI: Denies abdominal pain, nausea/vomiting, heartburn, melena/hematochezia. RENAL: Denies dysuria, hematuria, flank pain. MSK: Denies muscle weakness/pain, arthralgias/joint pain. NEUROLOGIC: Denies LOC, weakness, numbness, headaches. SKIN: Denies abnormal rashes or bleeding. PSYCH: Denies significant anxiety, depression, sleep disturbances. Medications Current Outpatient Medications on File Prior to Visit Medication Sig Dispense Refill aspirin 81 mg chewable tablet in the morning. hydroCHLOROthiazide (HYDRODiuril) 25 mg tablet Take 25 mg by mouth in the morning. losartan (Cozaar) 25 mg tablet Take 25 mg by mouth in the morning. oxybutynin XL (Ditropan-XL) 10 mg 24 hr tablet oxybutynin chloride ER 10 mg tablet,extended release 24 hr pravastatin (Pravachol) 20 mg tablet Take 20 mg by mouth at bedtime. No current facility-administered medications on file prior to visit. Allergies Patient has no known allergies. Physical Exam VITAL SIGNS: BP 136/64 (BP Location: Left arm, Patient Position: Sitting) Pulse 59 Ht 1.549 m (5' 1 ) Wt 89.4 kg (197 lb) SpO2 95% BMI 37.22 kg/m??? Constitutional: Well developed, Well nourished, No acute distress, Non-toxic appearance. HENT: Normocephalic, Atraumatic, Bilateral external ears have normal appearance, Bilateral TMs clear, Oropharynx moist, No oral or pharyngeal exudates, Nose appears normal, nares are patent. Eyes: PERRLA, EOMI, Conjunctiva normal, No discharge. Neck: Normal range of motion, No tenderness, Supple, No stridor. No cervical lymphadenopathy noted. Cardiovascular: Normal heart rate, Normal rhythm, No murmurs, No rubs, No gallops. Thorax & Lungs: Normal breath sounds, No respiratory distress, No wheezing, No chest tenderness to palpation. Abdomen: Bowel sounds normal, Soft, Nontender, No masses, No pulsatile masses. Skin: Warm, Dry, No erythema, No rash. Back: No tenderness, No CVA tenderness. Extremities: Intact distal pulses, No edema, No tenderness, No cyanosis, No clubbing. Musculoskeletal: Good range of motion in all major joints with 5/5 muscle strength in all muscle groups, No tenderness to palpation or major deformities noted. Neurologic: Alert & oriented x 3, Normal motor function in all major muscle groups, Normal sensory function to all major dermatomes, No focal deficits noted. Psychiatric: Affect normal, Judgment normal, Mood normal. Impression: -Essential Hypertension: well controlled per patient -Bradycardia: Asymptomatic -Right bundle branch: assymptomatic -HLD: on pravastatin. LDL within goal. Triglycerides elevated, but unclear if patient was fasting -Chronic lower extremity edema: stable from previous per patient report Plan: -Continue losartan to 50 mg daily for HTN -Continue pravastatin for HLD -Continue compression stockings for lower extremity edema. Patient has not had recent echo. Will obtain echocardiogram to assess LVEF, regional wall motion, and valvular function. -Optimize medical management -Aggressive risk factor modification -Plan of care discussed with patient. All questions were answered. Patient voices understanding and is agreeable with current plan. -Patient was educated on red flag symptoms. Strict return precautions were provided. Patient verbalizes understanding -Follow-up in cardiology clinic in 6 months, or sooner as needed Kari Gant MD Interventional Cardiology [facility] 07-11-2023 Note Remained stable diane ent states edema is no worse than usual, she is wearing compression socks daily Continue hydrochlorothiazide [facility] 07-11-2023 Note Stable no concerning symptoms No beta-le or AV low blocking agent [facility] 07-11-2023 Note Hypertension is Cont rolled 132/78 continue all medications including losartan, hydrochlorothiazide Recent renal function normal [facility] 07-11-2023 Note Continue atorvastatin [facility] 07-11-2023 Note Patient here for 6 m o follow up hypertension, hyperlipidemia, and bradycardia. Had routine labs last month. States she feels great. Denies chest pain, SOB, and palpitations. LE edema continues to improve. Review of Systems Cardiovascular: Positive for leg swelling. All other systems reviewed and are negative. [facility] 07-11-2023 Note [facility] CARDIOLOGY PROGR ESS NOTE HPI: Katie Barrera is a 82 y.o. female here for routine f/U HPI Pleasant 82-year-old female well-known to cardiology presents today for past medical history of hypertension, hyperlipidemia, right bundle branch block, and lower extremity lymphedema seen in follow-up. Patient here for 6 mo follow up hypertension, hyperlipidemia, and bradycardia. Had routine labs last month. States she feels great. Denies chest pain, SOB, and palpitations. LE edema continues to improve. Overall states she feels well and remains active at home without any limiting symptoms. Review of Systems Cardiovascular: Positive for leg swelling. All other systems reviewed and are negative. 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 Barrera is an 81-year-old patient with a past medical history including hypertension, hyperlipidemia, and bradycardia. She presents to cardiology clinic for routine follow-up. Update: 06/26/2022 Patient states that she has been doing well. She adamantly denies any cardiac complaints or concerns at the present time. She denies any chest pain or shortness of breath. No dizziness or lightheadedness. She denies any worsening lower extremity edema. No orthopnea or paroxysmal nocturnal dyspnea. Overall, she is very pleased with how she is doing. Blood pressure remains somewhat elevated. Update: 12/30/2022 Losartan was increased to milligrams during last visit BP at home has been mainly running in the 130s systolic Still has lower extremity edema which is stable Stable dyspnea on exertion No chest pain or palpitations Visit Vitals BP 132/78 (BP Location: Left arm, Patient Position: Sitting) Pulse 60 Ht 1.549 m (5' 1 ) Wt 85.7 kg (189 lb) SpO2 96% BMI 35.71 kg/m??? Smoking Status Former BSA 1.92 m??? No Known Allergies Medications: Current Outpatient Medications on File Prior to Visit Medication Sig Dispense Refill aspirin 81 mg chewable tablet in the morning. atorvastatin (Lipitor) 40 mg tablet Take 1 tablet (40 mg) by mouth at bedtime. 90 tablet 3 hydroCHLOROthiazide (HYDRODiuril) 25 mg tablet Take 25 mg by mouth in the morning. losartan (Cozaar) 50 mg tablet TAKE 1 TABLET EVERY MORNING 90 tablet 3 oxybutynin XL (Ditropan-XL) 10 mg 24 hr tablet oxybutynin chloride ER 10 mg tablet,extended release 24 hr [DISCONTINUED] losartan (Cozaar) 25 mg tablet Take 25 mg by mouth in the morning. [DISCONTINUED] pravastatin (Pravachol) 20 mg tablet Take 20 mg by mouth at bedtime. No current facility-administered medications on file prior to visit. Physical Exam: Constitutional: Appearance: Normal appearance. Without apparent distress HENT: Head: Normocephalic and atraumatic. Nose: Nose normal. Mouth/Throat: Mouth: Mucous membranes are moist. Eyes: Extraocular Movements: Extraocular movements intact. Conjunctiva/sclera: Conjunctivae normal. Neck: Vascular: No JVD. Cardiovascular: Rate and Rhythm: Normal rate and regular rhythm. Pulses: Radial pulses are 3 on the right side and 3on the left side. Posterior tibial pulses are 3 on the right side and 3 on the left side. Heart sounds: Normal heart sounds, S1 normal and S2 normal. Pulmonary: Effort: Pulmonary effort is normal. Breath sounds: Normal breath sounds. Abdominal: General: Bowel sounds are normal. Palpations: Abdomen is soft. Musculoskeletal: General: Normal range of motion. Cervical back: Normal range of motion. Right lower le-2+ pitting edema. Left lower le+ pitting edema. Skin: General: Skin is warm and dry. Capillary Refill: Capillary refill takes less than 2 seconds. Neurological: General: No focal deficit present. Mental Status: She is alert and oriented to person, place, and time. Psychiatric: Mood and Affect: Mood normal. Behavior: Behavior normal. Thought Content: Thought content normal. Judgment: Judgment normal. Labs: 05/26/23 CBC normal BUN 16, CR 0.82, GFR > 60 normal LFT normal Chol 131, Trig 114, HDL 44, LDL 64.2- well controlled CBC: 12/09/2022 WBC 6.1, hemoglobin 13.4, hematocrit 39.1%, platelets 256 Sodium 141, potassium 3.7, chloride 104, CO2 27.9, anion gap 12.8, BUN 18, serum creatinine 0.84, estimated GFR greater than 60% Last lab values have been reviewed CV Testin01/30/2021 TTE No echocardiogram results found for the past 12 months Assessment/Plan: Mixed hyperlipidemia Continue atorvastatin Hypertensive disorder Hypertension is Controlled 132/78 continue all medications including losartan, hydrochlorothiazide Recent renal function normal Bradycardia Stable no concerning symptoms No beta-le or AV low blocking agent Edema of lower extremity Remained stable patient states edema is no worse than usual, she is wearing compression socks daily Continue hydrochlorothiazide RTC 6 months [facility] 05-05-2023 Evaluation note Encounter Date Diagnosis Assessment Notes Apr, Medicare annual wellness visit, subsequent (ICD-10 - Z00.00) Personalized health advice was given to the beneficiary including a written plan for screenings discussed and provided. Advanced care planning reviewed and/or information given as requested. Additional counseling was provided here today in regards to, [ ]. The above visit was performed by [ ], under direct supervision of [ ]. Document reviewed and amended by provider signed below. Apr, Sciatic pain, right (ICD-10 - M54.31) Order printed for PT if she is not able to get resolution w sub acute care nurse alone. Apr, Elevated lipids (ICD-10 - E78.5) Due for labs. Patient to continue to watch diet and increase exercise routine. Remain active as tolerated and we will continue to monitor with routine blood work. Patient is to continue with above medication as directed. 20 Nov, 2023 Essential (primary) hypertension (ICD-10 - I10) Blood pressure remains well controlled at this time. Denies cardiac symptoms. Shows no signs or symptoms or poor control. Patient to continue with above medication and we will continue to monitor. Advised to pay attention to body and symptoms. Any developing patterns. Stay well hydrated. [employer] Other Evaluation note* Diagnosis Asymmetrical sensorineural hearing loss- Primary Sensorineural hearing loss, asymmetrical documented in this encounter [facility] N[facility] - Reported* Type Description Date Medical History Elevated lipids Medical History Osteoarthritis Medical History Bradycardia Medical History OAB (overactive bladder) Surgical History CONGENITAL NEVUS NECK Surgical History MIRZA/BSO Surgical History COLONOSCOPY Hospitalization History SEE SURGICAL HX [employer] Other Summary Purpose Family History No Family History Records FoundNo Family History Records FoundNo Family History Records FoundNo Family History Records Found Advance Directives No Advanced Directives Records FoundNo Advanced Directives Records FoundNo Advanced Directives Records FoundNo Advanced Directives Records Found Additional Source Comments INFORMATION SOURCE (unrecogn ized section and content) DATE CREATED AUTHOR 12/16/2020 [facility] DATE CREATED AUTHOR AUTHOR'S ORGANIZ ATION 07/11/2022 [facility] DATE CREATED AUTHOR AUTHOR'S ORGANIZ ATION 12/31/2023 [facility] DATE CREATED AUTHOR AUTHOR'S ORGANIZ ATION 02/19/2024 [facility] dical Specialists EPIC REASON FOR VISIT (unrecogniz ed section and content) Wellness Care Teams (unrecognized sec tion and content) Risk Adjustment Specialist Relationship Specialty Start Date End Date Dalia Coleman MD [address] [place] [address] PCP - General Family Medicine 01/09/23 Risk Adjustment Specialist Relationship Specialty Start Date End Date Dalia Coleman MD [address] [place] [id number] PCP - General Family Medicine 01/09/23 FOR RECORDS PERTAINING TO PATIENTS WHO ARE OR HAVE BEEN ENROLLED IN A CHEMICAL DEPENDENCY/SUBSTANCEABUSE PROGRAM, SOME INFORMATION MAY BE OMITTED. This clinical summary was aggregated from multiple sources. Caution should be exercised in using it in the provision of clinical care. This summary normalizes information from multiple sources, and as a consequence, information in this document may materially change the coding, format and clinical context of patient data. In addition, data may be omitted in some cases. CLINICAL DECISIONS SHOULD BE BASED ON THE PRIMARY CLINICAL RECORDS. [facility] [employer] [facility]. provides no warranty or guarantee of the accuracy or completeness of information in this document.
--- NOTE | 2024-06-04 09:07 | XR_ITS ---
The [address] [address] Patient Name: KRYSTEN SUAREZ MRN: [id number] date: 1940 Sex: F Assigned Patient Location: [facility] Current Patient Location: [facility] Accession/Order Number: [id number] Exam Date: 06/04/2024 09:11 Report Date: 06/04/2024 11:56 At the request of: JOHN COLEMAN Procedure: XR DEXA axial skeleton EXAMINATION: XR DEXA axial skeleton, 06/04/2024 9:11 AM EST HISTORY: Menopausal Disorder COMPARISON: 2008. TECHNIQUE: Dual-energy X-ray absorptiometry (DEXA) bone density study performed for the axial skeleton. FINDINGS: Bone mineral density of the AP spine L2-L4 measures 1.458 g/sq cm. T score 2.1. Normal. Lowest bone mineral density right femoral trochanter measuring 0.666 g/sq cm. T score -1.6. Osteopenia XR/XR DEXA axial skeleton IMPRESSION: Osteopenia. Moderate fracture risk Pharmacologic treatment recommendations * No uniform recommendation applies to all patients. Management plans must be individualized. * Consider initiating pharmacologic treatment in postmenopausal women and men >= 50 years of age who have the following: Primary fracture prevention: * T-score <= - 2.5 at the femoral neck, total hip, lumbar spine, 33% radius (some uncertainty with existing data) by DXA. * Low bone mass (osteopenia: T-score between - 1.0 and - 2.5) at the femoral neck or total hip by DXA with a 10-year hip fracture risk >= 3% or a 10-year major osteoporosis-related fracture risk >= 20% (i.e., clinical vertebral, hip, forearm, or proximal humerus) based on the [place]-adapted FRAXregistered model. Secondary fracture prevention: * Fracture of the hip or vertebra regardless of BMD [4, 5]. * Fracture of proximal humerus, pelvis, or distal forearm in persons with low bone mass (osteopenia: T-score between - 1.0 and - 2.5). The decision to treat should be individualized in persons with a fracture of the proximal humerus, pelvis, or distal forearm who do not have osteopenia or low BMD [12, 13]. Gordo Jones MSspan SL, Raji KL, Emmanuel EM, Mara KG, AJ, Marquis ES. The clinician's guide to prevention and treatment of osteoporosis. Osteoporos Int. 2021;33(10):2212-9233. doi: 10.1007/[id number]-z. Epub 2021Oct 11. Erratum in: Osteoporos Int. 2021Jan 10;: PMID: [id number]; PMCID: [id number]. Electronically authenticated by: RACHID ALCALA Date: 06/04/2024 11:56
[2024-06-04 09:09] LABS: Basophils Absolute Auto 0.1 10^3/uL (0.0-0.1); Basophils Percent Auto 1.1 % (0.2-2.0); Eosinophils Absolute Auto 0.4 10^3/uL (0.0-0.7); Eosinophils Percent Auto 4.8 % (0.9-7.0); Hematocrit 41.7 % (36.0-48.0); Hemoglobin 13.5 g/dL (12.0-16.0); Immature Granulocytes Abs Auto 0.02 10^3/uL (0.00-0.03); Immature Granulocytes Pct Auto 0.3 % (0.0-0.5); Lymphocytes Absolute Auto 1.7 10^3/uL (1.2-3.8); Lymphocytes Percent Auto 23.2 % (20.5-60.0); Mean Corpuscular HGB Conc 32.4 g/dL (29.9-35.2); Mean Corpuscular Hemoglobin 28.8 pg (26.7-34.0); Mean Corpuscular Volume 88.9 fL (81.0-99.0); Mean Platelet Volume 9.2 fL (9.5-13.5); Monocytes Absolute Auto 0.9 10^3/uL (0.3-0.8); Monocytes Percent Auto 12.8 % (1.7-12.0); Neutrophils Absolute Auto 4.2 10^3/uL (1.4-6.5); Neutrophils Percent Auto 57.8 % (43.0-75.0); Platelet Count 272 10^3/uL (150-450); Red Blood Count 4.69 10^6/uL (4.20-5.40); White Blood Count 7.3 10^3/uL (4.0-11.0)
[2024-06-04 09:30] LABS: Creatinine Urine Random 208.81 mg/dL (20.00-300.00); Microalbum Creatinine Ratio Ur 26.3 mg/g (0.0-29.9); Microalbumin Urine Random 5.5 mg/dL (<=30.0)
[2024-06-04 09:56] LABS: Alanine Aminotransferase 25 U/L (14-59); Albumin Globulin Ratio 1.1; Albumin Level 3.5 g/dL (3.4-5.0); Alkaline Phosphatase 73 U/L (46-116); Anion Gap 11.5; Aspartate Amino Transferase 23 U/L (15-37); BUN Creatinine Ratio 20.4; Bilirubin Total 0.9 mg/dL (0.2-1.0); Calcium 9.3 mg/dL (8.5-10.1); Carbon Dioxide 31.2 mmol/L (21.0-32.0); Chloride 105 mmol/L (98-107); Chol HDL Ratio 3.1; Cholesterol 136 mg/dL (<=200); Estimated GFR (African America >60 (>=60 mL/min/1.73m^2); Estimated GFR (Non-African Ame 58 (>=60 mL/min/1.73m^2); Globulin 3.3 g/dL; Glucose 100 mg/dL (74-106); HDL Cholesterol 44 mg/dL (40-60); LDL Cholesterol Calculated 66.8 mg/dL; Potassium 3.7 mmol/L (3.5-5.1); Sodium 144 mmol/L (136-145); Thyroid Stimulating Hormone 3.058 uIU/mL (0.358-3.740); Total Protein 6.8 g/dL (6.4-8.2); Triglycerides 126 mg/dL (<=150); VLDL CHOLESTEROL 25.2 mg/dL
== END 2024-06-04 08:51 | disposition home or self-care (01) ==
LOC: RAD 08:50
PROVIDERS: PCP Family Medicine; Visit Provider Family Medicine
DX: E78.5 Hyperlipidemia, unspecified (principal); I10 Essential (primary) hypertension; N95.9 Unspecified menopausal and perimenopausal disorder; M85.80 Other specified disorders of bone density and structure, unspecified site
CPT/HCPCS: 36415; 77080; 80053; 80061; 82043; 82570; 84443; 85025

== ENCOUNTER 2024-07-21 09:45 | Outpatient (OUT) | payer MEDICARE, OTHER, SELFPAY ==
--- OUTSIDE RECORDS SUMMARY | 2024-07-21 09:54 | XMS_ITS | CCD ---
Author Organization [facility] Care Team Providers Care Glove Printer Name Role Phone VIRGINIA, DR DALIA Park Admitting Unavailable VIRGINIA, DR DALIA Park Attending Unavailable VIRGINIA, DR DALIA Park Consulting Unavailable VIRGINIA, DR DALIA Park Primary Care Unavailable VIRGINIA, DR DALIA Park Primary Care Unavailable ROSE MARY, ANTOINETTE Attending Unavailable ROSE MARY, ANTOINETTE Admitting Unavailable COLEMAN, DR DALIA Park Primary Care Unavailable ROSE MARY, ANTOINETTE Admitting Unavailable ROSE MARYANTOINETTE Attending Unavailable VIRGINIA, DR DALIA Park Primary Care Unavailable MIKYHOINGE ALLENAMAOskar Admitting Unavailable ALGHOALEJANDRO MOHAMAOskar Attending Unavailable MIKYHOALEJANDRO MOHAMAD Consulting Unavailable VIRGINIA, DR DALIA Park Primary Care Unavailable ALGHOTHANI, MOHAMAOskar Admitting Unavailable ALGHOTHANI, MOHAMAD Attending Unavailable MIKYHOALEJANDRO, MOHAMAD Consulting Unavailable Dalia Coleman Unavailable CATRINA NOVA Attending Unavailable CATRINA NOVA Attending Unavailable CATRINA NOVA Attending Unavailable Dalia Coleman MD Primary Care Provider [phone] ANTOINETTE BAZZI Attending Unavailable ALGHOALEJANDRO MOHAMAD Attending Unavailable MIKE GANTD Attending Unavailable Medications Current Medications Medication Drug Class(es) Dates [...] for 0 duration 5 years *Reorder from [facility] for eRx and Interaction Alerts* Apr, Active hydroCHLOROthiazide 25 mg oral tablet (1 source) Thiazide Diuretic hydroCHLOROthiazide 25 MG TAKE 1 TABLET EVERY DAY Active losartan potassium 50 mg oral tablet (1 source) Angiotensin 2 Receptor Le Start: 2 take 50 mg by mouth once daily losartan 50mg losartan( 50mg oral daily ) Active -Hx Entry oral daily *Reorder from [facility] for eRx and Interaction Alerts* Apr, Active [...] Name Value Interpretation Reference Range Facil ity 36on 01-28-2024 36 Patient made aware of no acute abnormalities per Dr. Gant on echo performed on 01/26/2024. She verbalized understanding. Normal [facility] Office Visiton 12-25-2023 Follow-up visit [id number] Krysten Barrera 1940 F Date Provider Department Center 12/25/2023 3848-KARI GANT [facility] Family History Problem Relation Age of Onset Stroke Father Family Status - Relation Status Age at Father Level of Service:32549 [place] OFFICE/OUTPATIENT ESTABLISHED MOD MDM 30 MIN [facility] Office Visiton 07-11-2023 Follow-up visit [id number] Krysten Barrera 1940 F Date Provider Department Center 07/11/2023 ANTOINETTE OLIVERA [facility] Family History Problem Relation Age of Onset Stroke Father Family Status - Relation Status Age at Father Level of Service:09622 [place] OFFICE/OUTPATIENT ESTABLISHED MOD MDM 30 MIN Normal [facility] PROF CHEM 8 (BAS METB)on Anion gap [Moles/Vol] 13.5 mmol/L Normal [facility] Comment on above: Performed By: #### B MP #### [facility] [address] [place] [address] Dr. Bessy Goetz Calcium [Mass/Vol] 9.1 mg/dL Normal 8.5-10.1 [facility] Comment on above: Performed By: #### B MP #### [facility] [address] [address] [address] Bessy Goetz Chloride [Moles/Vol] 103 mmol/L Normal 98-107 [facility] Comment on above: Performed By: #### B MP #### [facility] [address] [address] [address] Bessy Goetz CO2 [Moles/Vol] 28.9 mmol/L Normal 21.0-32.0 [facility] Comment on above: Performed By: #### B MP #### [facility] [address] [address] [address] Bessy Goetz Creatinine [Mass/Vol] 0.83 mg/dL Normal 0.55-1.02 [facility] Comment on above: Performed By: #### B MP #### [facility] [address] [address] [address] Bessy Goetz EGFR-AF GAMBIAN >60 Normal >=60 [facility] Comment on above: Performed By: #### B MP #### [facility] [address] [address] [address] Bessy Goetz EGFR-NON AF GAMBIAN >60 Normal >=60 [facility] Comment on above: Performed By: #### B MP #### [facility] [address] [address] [address] Bessy Goetz Glucose [Mass/Vol] 88 mg/dL Normal 74-106 [facility] Comment on above: Performed By: #### B MP #### [facility] [address] [address] [address] Bessy Goetz Potassium [Moles/Vol] 3.4 mmol/L Critically low 3.5-5.1 [facility] Comment on above: Performed By: #### B MP #### [facility] [address] [address] [address] Bessy Goetz Sodium [Moles/Vol] 142 mmol/L Normal 136-145 [facility] Comment on above: Performed By: #### B MP #### [facility] [address] [place] [address] Dr. Bessy Goetz Urea nitrogen [Mass/Vol] 17.0 mg/dL Normal 7.0-18.0 [facility] Comment on above: Performed By: #### B MP #### [facility] [address] [place] [address] Dr. Bessy Goetz Urea nitrogen/Creatinin e [Mass ratio] 20.5 mg/mg Normal [facility] Comment on above: Performed By: #### B MP #### [facility] [address] [place] [address] Dr. Bessy Goetz CBC AUTO DIFFon 05-15-2022 BASO # 0.1 103/ul Normal 0.0-0.1 [facility] Comment on above: Performed By: #### C BC #### [facility] [address] [place] [address] Dr. Bsesy Goetz Basophils/100 WBC (Bld) 1.2 % Normal 0.2-2.0 [facility] Comment on above: Performed By: #### C BC #### [facility] [address] [place] [address] Dr. Bessy Goetz EO # 0.3 103/ul Normal 0.0-0.7 [facility] Comment on above: Performed By: #### C BC #### [facility] [address] [place] [address] Dr. Bessy Goetz Eosinophils/100 WBC (Bld) 4.1 % Normal 0.9-7.0 [facility] Comment on above: Performed By: #### C BC #### [facility] [address] [place] [address] Dr. Bessy Goetz Erythrocyte distribution width (RBC) [Ratio] 14.0 % Normal 11.0-15.0 [facility] Comment on above: Performed By: #### C BC #### [facility] [address] [place] [address] Dr. Bessy Goetz Hematocrit (Bld) [Volume fraction] 40.2 % Normal 36.0-48.0 [facility] Comment on above: Performed By: #### C BC #### [facility] [address] [place] [address] Dr. Bessy Goetz Hemoglobin (Bld) [Mass/Vol] 13.7 g/dL Normal 12.0-16.0 [facility] Comment on above: Performed By: #### C BC #### [facility] [address] [place] [address] Dr. Bessy Goetz IG # 0.04 10e3/ul Critically high 0.00-0.03 [facility] Comment on above: Performed By: #### C BC #### [facility] [address] [place] [address] Dr. Bessy Goetz IG % 0.6 % Critically high 0.0-0.5 [facility] Comment on above: Performed By: #### C BC #### [facility] [address] [place] [address] Dr. Bessy Goetz LYMPH # 1.9 103/ul Normal 1.2-3.8 [facility] Comment on above: Performed By: #### C BC #### [facility] [address] [place] [address] Dr. Bessy Goetz Lymphocytes/100 WBC (Bld) 26.7 % Normal 20.5-60.0 [facility] Comment on above: Performed By: #### C BC #### [facility] [address] [place] [address] Dr. Bessy Goetz MANUAL DIFF REQ NO Normal [facility] Comment on above: Performed By: #### C BC #### [facility] [address] [place] [address] Dr. Bessy Goetz MCH (RBC) [Entitic mass] 29.2 pg Normal 26.7-34.0 [facility] Comment on above: Performed By: #### C BC #### [facility] [address] [place] [address] Dr. Bessy Goetz MCHC (RBC) [Mass/Vol] 34.1 g/dL Normal 29.9-35.2 [facility] Comment on above: Performed By: #### C BC #### [facility] [address] [place] [address] Dr. Bessy Goetz MCV (RBC) [Entitic vol] 85.7 fL Normal 81.0-99.0 [facility] Comment on above: Performed By: #### C BC #### [facility] [address] [place] [address] Dr. Bessy Goetz MONO # 0.7 103/ul Normal 0.3-0.8 [facility] Comment on above: Performed By: #### C BC #### [facility] [address] [place] [address] Dr. Bessy Goetz Monocytes/100 WBC (Bld) 9.9 % Normal 1.7-12.0 [facility] Comment on above: Performed By: #### C BC #### [facility] [address] [place] [address] Dr. Bessy Goetz NEUT # 4.2 103/ul Normal 1.4-6.5 [facility] Comment on above: Performed By: #### C BC #### [facility] [address] [place] [address] Dr. Bessy Goetz Neutrophils/100 WBC (Bld) 57.5 % Normal 43.0-75.0 [facility] Comment on above: Performed By: #### C BC #### [facility] [address] [place] [address] Dr. Bessy Goetz Platelet mean volume (Bld) [Entitic vol] 9.0 fL Critically low 9.5-13.5 [facility] Comment on above: Performed By: #### C BC #### [facility] [address] [place] [address] Dr. Bessy Goetz PLT 263 103/ul Normal 150-450 [facility] Comment on above: Performed By: #### C BC #### [facility] [address] [place] [address] Dr. Bessy Goetz RBC 4.69 106/ul Normal 4.20-5.40 [facility] Comment on above: Performed By: #### C BC #### [facility] [address] [place] [address] Dr. Bessy Goetz WBC 7.3 103/ul Normal 4.0-11.0 [facility] Comment on above: Performed By: #### C BC #### [facility] [address] [place] [address] Dr. Bessy Goetz LIPID PROFILEon 05-15-2022 CHOL-HDL RATIO NORM SEE BELOW Normal [facility] Comment on above: Result Comment: 3.3 - 4.4 LOW RISK 4.4 - 7.1 AVERAGE RISK 7.1 - 11.0 MODERATE RISK >11.0 HIGH RISK Performed By: #### C MP, LIPID #### [facility] [address] [place] [address] Dr. Bessy Goetz Cholesterol [Mass/Vol] 168 mg/dL Normal <=200 [facility] Comment on above: Performed By: #### C MP, LIPID #### [facility] [address] [place] [address] Dr. Bessy Goetz Cholesterol in HDL [Mass/Vol] 42 mg/dL Normal 40-60 [facility] Comment on above: Performed By: #### C MP, LIPID #### [facility] [address] [place] [address] Dr. Bessy Goetz Cholesterol in LDL [Mass/Vol] 94.2 mg/dL Normal [facility] Comment on above: Performed By: #### C MP, LIPID #### [facility] [address] [address] [address] Bessy Goetz Cholesterol.total/ Cholesterol in HDL [Mass ratio] 4.0 {ratio} Normal [facility] Comment on above: Performed By: #### C MP, LIPID #### [facility] [address] [address] [address] Bessy Goetz HDL NORMAL > or = 60 mg/dl - LOW CARDIOVASCULAR RISK <40 mg/dl - HIGH CARDIOVASCULAR RISK Normal [facility] Comment on above: Performed By: #### C MP, LIPID #### [facility] [address] [place] [address] Dr. Bessy Goetz LDL CALC NORMAL SEE BELOW Normal [facility] Comment on above: Result Comment: <100 mg/dl OPTIMAL 100 - 129 mg/dl NEAR OR ABOVE OPTIMAL 130 - 159 mg/dl BORDERLINE HIGH 160 - 189 mg/dl HIGH >190 mg/dl VERY HIGH Performed By: #### C MP, LIPID #### [facility] [address] [place] [address] Dr. Bessy Goetz Triglyceride [Mass/Vol] 159 mg/dL Critically high <=150 [facility] Comment on above: Performed By: #### C MP, LIPID #### [facility] [address] [place] [address] Dr. Bessy Goetz VLDL CALC 31.8 mg/dL Normal [facility] Comment on above: Performed By: #### C MP, LIPID #### [facility] [address] [place] [address] Dr. Bessy Goetz PROF 14(COMP METB)on 022 Albumin [Mass/Vol] 3.5 g/dL Normal 3.4-5.0 [facility] Comment on above: Performed By: #### C MP, LIPID #### [facility] [address] [place] [address] Dr. Bessy Goetz Albumin/Globulin [Mass ratio] 1.1 {ratio} Normal [facility] Comment on above: Performed By: #### C MP, LIPID #### [facility] [address] [place] [address] Dr. Bessy Goetz ALP [Catalytic activity/Vol] 67 U/L Normal 46-116 [facility] Comment on above: Performed By: #### C MP, LIPID #### [facility] [address] [address] [address] Bessy Goetz ALT [Catalytic activity/Vol] 18 U/L Normal 14-59 [facility] Comment on above: Performed By: #### C MP, LIPID #### [facility] [address] [address] [address] Bessy Goetz Anion gap [Moles/Vol] 12.1 mmol/L Normal [facility] Comment on above: Performed By: #### C MP, LIPID #### [facility] [address] [place] [address] Dr. Bessy Goetz AST [Catalytic activity/Vol] 14 U/L Critically low 15-37 [facility] Comment on above: Performed By: #### C MP, LIPID #### [facility] [address] [address] [address] Bessy Goetz Bilirubin [Mass/Vol] 0.5 mg/dL Normal 0.2-1.0 [facility] Comment on above: Performed By: #### C MP, LIPID #### [facility] [address] [place] [address] Dr. Bessy Goetz Calcium [Mass/Vol] 9.0 mg/dL Normal 8.5-10.1 [facility] Comment on above: Performed By: #### C MP, LIPID #### [facility] [address] [address] [address] Bessy Goetz Chloride [Moles/Vol] 103 mmol/L Normal 98-107 [facility] Comment on above: Performed By: #### C MP, LIPID #### [facility] [address] [address] [address] Bessy Goetz CO2 [Moles/Vol] 29.3 mmol/L Normal 21.0-32.0 [facility] Comment on above: Performed By: #### C MP, LIPID #### [facility] [address] [address] [address] Bessy Goetz Creatinine [Mass/Vol] 0.81 mg/dL Normal 0.55-1.02 [facility] Comment on above: Performed By: #### C MP, LIPID #### [facility] [address] [place] [address] Dr. Bessy Goetz EGFR-AF GAMBIAN >60 Normal >=60 [facility] Comment on above: Performed By: #### C MP, LIPID #### [facility] [address] [place] [address] Dr. Bessy Goetz EGFR-NON AF GAMBIAN >60 Normal >=60 [facility] Comment on above: Performed By: #### C MP, LIPID #### [facility] [address] [place] [address] Dr. Bessy Goetz Globulin (S) [Mass/Vol] 3.3 g/dL Normal [facility] Comment on above: Performed By: #### C MP, LIPID #### [facility] [address] [place] [address] Dr. Bessy Goetz Glucose [Mass/Vol] 93 mg/dL Normal 74-106 [facility] Comment on above: Performed By: #### C MP, LIPID #### [facility] [address] [place] [address] Dr. Bessy Goetz Potassium [Moles/Vol] 3.4 mmol/L Critically low 3.5-5.1 [facility] Comment on above: Performed By: #### C MP, LIPID #### [facility] [address] [place] [address] Dr. Bessy Goetz Protein [Mass/Vol] 6.8 g/dL Normal 6.4-8.2 [facility] Comment on above: Performed By: #### C MP, LIPID #### [facility] [address] [place] [address] Dr. Bessy Goetz Sodium [Moles/Vol] 141 mmol/L Normal 136-145 [facility] Comment on above: Performed By: #### C MP, LIPID #### [facility] [address] [place] [address] Dr. Bessy Goetz Urea nitrogen [Mass/Vol] 16.0 mg/dL Normal 7.0-18.0 [facility] Comment on above: Performed By: #### C MP, LIPID #### [facility] [address] [place] [address] Dr. Bessy Goetz Urea nitrogen/Creatinin e [Mass ratio] 19.8 mg/mg Normal [facility] Comment on above: Performed By: #### C MP, LIPID #### [facility] [address] [place] [address] Dr. Bessy Goetz PROF CHEM 8 (BAS METB)on Anion gap [Moles/Vol] 10.3 mmol/L Normal [facility] Comment on above: Performed By: #### B MP #### [facility] [address] [place] [address] Dr. Bessy Goetz Calcium [Mass/Vol] 9.4 mg/dL Normal 8.5-10.1 [facility] Comment on above: Performed By: #### B MP #### [facility] [address] [place] [address] Dr. Bessy Goetz Chloride [Moles/Vol] 103 mmol/L Normal 98-107 [facility] Comment on above: Performed By: #### B MP #### [facility] [address] [place] [address] Dr. Bessy Goetz CO2 [Moles/Vol] 31.4 mmol/L Critically high 22.0-30.0 [facility] Comment on above: Performed By: #### B MP #### [facility] [address] [place] [address] Dr. Bessy Goetz Creatinine [Mass/Vol] 0.80 mg/dL Normal 0.52-1.04 [facility] Comment on above: Performed By: #### B MP #### [facility] [address] [place] [address] Dr. Bessy Goetz EGFR-AF GAMBIAN >60 Normal >=60 [facility] Comment on above: Performed By: #### B MP #### [facility] [address] [place] [address] Dr. Bessy Goetz EGFR-NON AF GAMBIAN >60 Normal >=60 [facility] Comment on above: Performed By: #### B MP #### [facility] [address] [address] [address] Bessy Goetz Glucose [Mass/Vol] 100 mg/dL Normal 74-106 [facility] Comment on above: Performed By: #### B MP #### [facility] [address] [address] [address] Besys Goetz Potassium [Moles/Vol] 3.7 mmol/L Normal 3.4-5.0 [facility] Comment on above: Performed By: #### B MP #### [facility] [address] [address] [address] Bessy Goetz Sodium [Moles/Vol] 141 mmol/L Normal 137-145 [facility] Comment on above: Performed By: #### B MP #### [facility] [address] [address] [address] Bessy Goetz Urea nitrogen [Mass/Vol] 12.0 mg/dL Normal 7.0-18.0 [facility] Comment on above: Performed By: #### B MP #### [facility] [address] [address] [address] Bessy Goetz Urea nitrogen/Creatinin e [Mass ratio] 15.0 mg/mg Normal [facility] Comment on above: Performed By: #### B MP #### [facility] [address] [address] [address] Bessy Goetz Consent for COVID Vaccineon 09-26-2020 SARS-CoV-2 (COVID-19) RNA TRISTAN+probe Ql (Unsp spec) [id number] 5#1.00CD:127 [facility] Consent for COVID Vaccineon 09-02-2020 SARS-CoV-2 (COVID-19) RNA TRISTAN+probe Ql (Unsp spec) [id number] 5#1.00CD:127 [facility] Consent for Treatmenton 08-15 Consent for Treatment [id number] 0#1.00CD:127 [facility] Coding Summary.on 08-30-2020 Coding Summary. CODING DATE: 08/30/[address] [facility] STATUS: PAYOR: Medicare APC DESCRIPTION 1492 New [...] Lachelle Bustos Date Saved: 08/30/2020 01:41 pm [facility] Vital Signs Date Time Vital Sign Value Performing Clinician Facility 05-05-2023 09:30-0500 Body height 153.67 cm Dalia Coleman Other [facility] Other 05-05-2023 09:30-0500 Body mass index (BMI) [Ratio] 36.68 kg/m2 Dalia Coleman Other [facility] Other 05-05-2023 09:30-0500 Body weight 86.64 kg Dalia Coleman Other [facility] Other 05-05-2023 09:30-0500 Diastolic blood pressure 67 mm[Hg] Dalia Coleman Other [facility] Other 05-05-2023 09:30-0500 Systolic blood pressure 114 mm[Hg] Dalia Coleman Other [facility] Other Encounters Encounter Date Encounter Type Care Provider Facility Start: 06-25-2024 End: 06-25-2024 ambulatory [facility] Start: 05-19-2024 End: 05-19-2024 Patient encounter procedure [facility] Venessa Helms [facility] Comment on above: Asymmetrical sensori neural hearing loss (Primary Dx) Start: 02-18-2024 End: 02-18-2024 Bamboo flowsheet Catrina Sahmeka Atvar CCC-A Work Phone: [facility] Start: 02-18-2024 End: 02-18-2024 Bamboo flowsheet Catrina Shameka Avtar CCC-A Work Phone: [facility] Start: 02-18-2024 End: 02-18-2024 Clinical Support Catrina Myles Avtar CCC-A Work Phone: [facility] Comment on above: Asymmetrical sensori neural hearing loss (Primary Dx) Start: 02-18-2024 End: 02-18-2024 ambulatory CATRINA A AVTAR Not Available Start: 02-02-2024 End: 02-02-2024 ambulatory CATRINA A AVTAR Not Available Start: 01-14-2024 End: 01-14-2024 ambulatory CATRINA A AVTAR Not Available Start: 12-25-2023 End: 12-25-[facility] Start: 07-11-2023 End: 07-11-2023 ambulatory ANTOINETTE ROSE MARY [facility] Start: 05-05-2023 End: 05-05-2023 ambulatory Dalia Coleman Other [facility] Other Start: 05-05-2023 Patient encounter procedure Dalia Coleman [facility] Start: 07-09-2022 End: 07-10-[address] DALIA COLEMAN Facility:[facility] Start: 05-15-2022 End: 05-16-[address] DALIA COLEMAN Facility:[facility] Start: 11-29-[address] DALIA COLEMAN [facility] ity:H1 Start: 09-05-2021 End: 09-06-[address] DALIA COLEMAN Facility:[facility] Plan of Treatment Date Care Activity Detail Author Start: 01-05-2025 End: 01-05-2025 Clinical Support 01/05/2025 10:00 AM EDT Clinical Support [facility] [address] [facility] [address] [place] [id number] Catrina Nova, CCC-A [address] [place] [address] [facility] Start: 05-19-2024 End: 05-19-2024 Patient encounter procedure 05/19/2024 10:00 AM EST Office Visit [facility] [address] [facility] [address] [place] [phone] [facility] Start: 02-18-2024 End: 02-18-2024 Clinical Support 02/18/2024 8:30 AM EDT Clinical Support [facility] [address] [facility] [address] [place] [id number] Catrina Nova, CCC-A [address] [place] [address] Arrived [facility] Comment on above: Arrived Start: 02-15-2024 Influenza vaccination Influenza Vacc ine (#1) [facility] Healthcare Immunizations Immunization Date Immunization Notes Care Provider Fa cili 05-02-2022 influenza virus vaccine, split virus (incl. purified surface antigen) Dalia Coleman Other [facility] Other 05-02-2022 influenza virus vaccine, unspecified formulation Catrina Nova [facility] Work Phone: [facility] 05-05-2017 pneumococcal polysaccharide vaccine, 23 valent Dalia Coleman Other [facility] Other 04-02-2016 pneumococcal conjuga te vaccine, 13 valent Dalia Coleman Other [facility] Other 04-25-2015 zoster vaccine, live Dalia Coleman Other [facility] Other Payers Date Payer Category Payer Medicare [employer] MED[employer] ADVANTAGE [employer] MED[employer]ARE [id number] 2022-Present [address] [address] [place] [address] [id number] 2022 Medicare (Managed Care) [employer] EDICARE ADVANTAGE [id number] 2021 Private Health Insurance [employer] [id number] 2021 Unknown [employer] [id number] 2021- [address] [place] [address] [id number] 1959 Medicare [id number] 1959 Self-pay [id number] 1959 Unknown [id number] 1941 Unknown [id number] 1941 Unknown [id number] 1941 Unknown [id number] 1941 Unknown [id number] 593 1941 Unknown [id number] 1940 Unknown [id number] 1940 Unknown [id number] 1940 Unknown [id number] Social History Date Type Detail Facility Unknown if ever smoked [facility] Other Sex Assigned At [employer] [facility] Other Tobacco smoking status [facility] Tobacco smoking consumption unknown [facility] Healthcare Start: 1940 Sex assigned at Not on file [facility] Clinical Notes 05-05-2023 to 05-19-2024 [...] 3:13 PM EST documented in this encounter [facility] 02-18-2024 History of Present illness Narrative Hearing Aid Check: 2 week PAZ check - pt doing very well and likes CROS. She feels more balanced. Reviewed changing dome and filter. Will see pt in 3 months. Will review changing dome/filter again if needed documented in this encounter [facility] 12-25-2023 Note Cardiology Follow Up Progress Note Chief Complaint: [place] Follow up HPI: Ms. Barrera is an [...] as needed Kari Gant MD Interventional Cardiology [facility] 07-11-2023 Note Remained stable diane ent states edema is no worse than usual, she is wearing compression socks daily Continue hydrochlorothiazide [facility] 07-11-2023 Note Stable no concerning symptoms No beta-le or AV low blocking agent [facility] 07-11-2023 Note Hypertension is Cont rolled 132/78 continue all medications including losartan, hydrochlorothiazide Recent renal function normal [facility] 07-11-2023 Note Continue atorvastatin [facility] 07-11-2023 Note Patient here for 6 m o follow up hypertension, hyperlipidemia, and bradycardia. Had routine labs last month. States she feels great. Denies chest pain, SOB, and palpitations. LE edema continues to improve. Review of Systems Cardiovascular: Positive for leg swelling. All other systems reviewed and are negative. [facility] 07-11-2023 Note [facility] CARDIOLOGY PROGR ESS NOTE HPI: Krysten Barrera is a 82 y.o. female here [...] are negative. Previous HPI per [facility] records management specialist Ms. Aichholz is an 81-year-old patient with a past [...] socks daily Continue hydrochlorothiazide RTC 6 months [facility] 05-05-2023 Evaluation note Encounter Date Diagnosis Assessment [...] is not able to get resolution w transitional care liaison alone. Apr, Elevated lipids (ICD-10 - E78.5) Due for labs. Patient to continue to watch diet and increase exercise routine. Remain active as tolerated and we will continue to monitor with routine blood work. Patient is to continue with above medication as directed. Apr, Essential (primary) hypertension (ICD-10 - I10) Blood pressure remains well controlled at this time. Denies cardiac symptoms. Shows no signs or symptoms or poor control. Patient to continue with above medication and we will continue to monitor. Advised to pay attention to body and symptoms. Any developing patterns. Stay well hydrated. [facility] Other Evaluation note* Diagnosis Asymmetrical sensorineural hearing loss- Primary Sensorineural hearing loss, asymmetrical [facility] - Reported* Type Description Date Medical History Elevated lipids Medical History Osteoarthritis Medical History Bradycardia Medical History OAB (overactive bladder) Surgical History CONGENITAL NEVUS NECK Surgical History MIRZA/BSO Surgical History COLONOSCOPY Hospitalization History SEE SURGICAL HX [facility] Other Summary Purpose Family History No Family History Records FoundNo Family History Records FoundNo Family History Records FoundNo Family History Records Found Advance Directives No Advanced Directives Records FoundNo Advanced Directives Records FoundNo Advanced Directives Records FoundNo Advanced Directives Records Found Additional Source Comments INFORMATION SOURCE (unrecogn ized section and content) DATE CREATED AUTHOR 12/16/2020 [facility] DATE CREATED AUTHOR AUTHOR'S ORGANIZ ATION 07/11/2022 [facility] DATE CREATED AUTHOR AUTHOR'S ORGANIZ ATION 02/19/2024 [facility] EPIC DATE CREATED AUTHOR AUTHOR'S ORGANIZ ATION 06/30/2024 [facility] REASON FOR VISIT (unrecogniz ed section and content) Wellness Care Teams (unrecognized sec tion and content) [employer] Relationship Specialty Start Date End Date Dalia Coleman MD [address] [place] [id number] PCP - General Family Medicine 01/09/23 [employer] Relationship Specialty Start Date End Date Dalia Coleman MD [address] [place] [id number] PCP - General Family Medicine 01/09/23 FOR [...] BE BASED ON THE PRIMARY CLINICAL RECORDS. [employer] [facility]. provides no warranty or guarantee of the accuracy or completeness of information in this document.
[2024-07-21 10:49] LABS: Anion Gap 11.9; BUN Creatinine Ratio 19.6; Calcium 9.5 mg/dL (8.5-10.1); Carbon Dioxide 31.8 mmol/L (21.0-32.0); Chloride 103 mmol/L (98-107); Estimated GFR (African America >60 (>=60 mL/min/1.73m^2); Estimated GFR (Non-African Ame 58 (>=60 mL/min/1.73m^2); Glucose 90 mg/dL (74-106); Potassium 3.7 mmol/L (3.5-5.1); Sodium 143 mmol/L (136-145)
== END 2024-07-21 09:46 | disposition home or self-care (01) ==
LOC: LAB 09:47
PROVIDERS: PCP Family Medicine; Visit Provider Internal Medicine Cardiovascular Disease
DX: I10 Essential (primary) hypertension (principal)
CPT/HCPCS: 36415; 80048

== ENCOUNTER 2025-01-25 09:50 | Outpatient (OUT) | payer MEDICARE, OTHER, SELFPAY ==
--- NOTE | 2025-01-25 10:00 | CA_ITS ---
Patient Name: KRYSTEN SUAREZ MR#: [id number] : 1940 Exam Date: 01/25/2025 Ordering Doctor: DR ANGIE ROBIN M.D. ECHOCARDIOGRAM REPORT PROCEDURE: CA ECHO DOPPLER COMPLETE INDICATIONS: Diastolic heart failure, pulmonary hypertension, hypertension COMPARISON: None. DESCRIPTION: COMPLETE ECHOCARDIOGRAM Real-time transthoracic echocardiography with 2D, M-mode, spectral and color flow Doppler performed. QUALITY: Technical quality was good. LEFT VENTRICLE: Normal chamber size. Proximal septal hypertrophy (sigmoid septum). Systolic function is at the lower limits of normal. LV EF: Lower limits of normal left ventricular ejection fraction, (50-55%). DIASTOLIC: ATRIAL SEPTUM: Visually appears intact. LEFT ATRIUM: Moderate dilatation. RIGHT ATRIUM: Mild dilatation. RIGHT VENTRICLE: Normal chamber size. Normal right ventricular systolic function. TRICUSPID VALVE: Normal mobility and thickness. No stenosis with trivial regurgitation. Unable to assess right-sided pressure due to lack of measurable tricuspid regurgitation. MITRAL VALVE: Normal mobility and thickness. No evidence of mitral valve stenosis. Mild mitral annular calcification. Mild mitral regurgitation. AORTIC VALVE: Normal trileaflet appearance. Mildly calcified aortic valve. Normal leaflet mobility. No evidence of aortic valve stenosis. No aortic regurgitation. AORTIC ROOT: Normal diameter and appearance, measuring 3.2 cm. Ascending aorta is normal in size (3.3 cm). PULMONIC VALVE: Normal thickness and mobility. No stenosis. Trivial regurgitation. PERICARDIUM: No evidence of pericardial effusion. IVC: Collapses with inspiration. PLEURA: CONCLUSION: 1. The left ventricle is normal in size and exhibits low normal systolic function. LVEF is estimated at 50 to 55%. 2. Normal right ventricular size and systolic function. 3. Mild to moderate biatrial dilatation. 4. Mild mitral regurgitation. 5. Unable to assess right-sided pressures due to lack of measurable tricuspid regurgitation. Adult Echocardiography Procedure Report Left Ventricle LVEDD (3.7 - 5.6 cm): 4.40 cm LVESD (2.2 - 4.0 cm): 2.86 cm LVIVS thickness (0.6 - 1.2 cm): 1.25 cm LVPW thickness (0.5 - 1.0 cm): 1.13 cm LVOT Max Gradient: 2.98 mm[Hg], 3.12 mm[Hg] LVOT Area (cm2): 0.87 m/s Peak Velocity (LVOT): 0.86 m/s, 0.88 m/s Mean Velocity (LVOT): 0.60 m/s LVOT Diameter 2.12 cm Left Ventricular Ejection Fraction: 50-55 % Left Atrium LA Volume Index (2D A2C): 43.01 ml/m2 Left Atrium Systolic Dimension: 3.99 cm Mitral Valve MV E to A Ratio: 1.02, 0.98 Mitral Valve A-Wave Peak Velocity: 0.89 m/s Mitral Valve E-Wave Peak Velocity: 0.89 m/s Right Ventricle Aorta AO Root Diam: 3.16 cm Ascending Ao Diam: 3.34 cm Aortic Valve AoV Area (Peak Paul): 2.07 cm2, 2.00 cm2, 2.15 cm2 AoV Area (VTI): 2.36 cm2, 2.10 cm2, 2.65 cm2 Peak Velocity(Antegrade Flow): 1.53 m/s, 1.45 m/s Peak Gradient(Antegrade Flow): 9.37 mm[Hg], 8.43 mm[Hg] Mean Velocity(Antegrade Flow): 1.02 m/s, 1.02 m/s Mean Gradient(Antegrade Flow): 4.73 mm[Hg], 4.48 mm[Hg] Velocity Time Integral: 37.36 cm, 34.64 cm Tricuspid Valve Pulmonic Valve Peak Velocity: 0.85 m/s Peak Gradient: 3.37 mm[Hg], 2.40 mm[Hg], 3.48 mm[Hg], 2.45 mm[Hg] Right Atrium Right Atrium Systolic Pressure: 45.69 ml, 45.69 ml Dictated by: Angie Robin M.D. on 01/25/2025 at 18:17 Approved by: Angie Robin M.D. on 01/25/2025 at 18:23
[2025-01-25 11:21] LABS: Anion Gap 5.8; Blood Urea Nitrogen 26.0 mg/dL (7.0-18.0); Calcium 9.4 mg/dL (8.5-10.1); Carbon Dioxide 31.6 mmol/L (21.0-32.0); Chloride 106 mmol/L (98-107); Estimated GFR (African America >60 (>=60 mL/min/1.73m^2); Estimated GFR (Non-African Ame >60 (>=60 mL/min/1.73m^2); Glucose 97 mg/dL (74-106); Potassium 3.4 mmol/L (3.5-5.1); Sodium 140 mmol/L (136-145)
== END 2025-01-25 09:51 | disposition home or self-care (01) ==
PROVIDERS: PCP Family Medicine; Visit Provider Internal Medicine Interventional Cardiology
DX: I11.0 Hypertensive heart disease with heart failure (principal); I50.32 Chronic diastolic (congestive) heart failure; I27.20 Pulmonary hypertension, unspecified
CPT/HCPCS: 36415; 80048; 93306